=== PATIENT | male | born 1980 | race Caucasian/White ===

== ENCOUNTER 2019-01-09 08:27 | Outpatient (CLI) | payer BC | END 2019-01-09 08:28 | disposition home or self-care (01) | LOC: PAT 08:27 ==

== ENCOUNTER 2019-01-17 06:41 | Day surgery (SDC) | payer BC ==
[2019-01-09 10:22] VITALS: BMI 27.0
[2019-01-17] MEDS ORDERED: Bupivacaine 0.5% 50 ML IJ ONE (08:09)
[2019-01-17] MEDS ORDERED: Midazolam 2 MG/2 ML VIAL ONE (08:50)
[2019-01-17] MEDS ORDERED: Propofol 10 mg/ml Inj (20 ML) ONE (08:50)
[2019-01-17] MEDS ORDERED: ePHEDrine 50 mg/ml Inj ONE (09:53)
--- NOTE | 2019-01-17 10:10 | PCM.SURG1 ---
Surgeon's Initial Post Op Note - Surgeon's Notes Surgeon: Dr. Patiño Tack Puller: Dr. De León PGY2, Dr. Batista PGY1, Daniele OMS-3 Type of Anesthesia: General Endo, Local Anesthesia Administered By: Dr. Garces Pre-Operative Diagnosis: Left inguinal hernia Operative Findings: see operative dictation Post-Operative Diagnosis: same Operation Performed: open left inguinal hernia repair with mesh Specimen/Specimens Removed: none Estimated Blood Loss: EBL {In ML}: 2 Blood Products Given: N/A Drains Used: No Drains Post-Op Condition: Good Date of Surgery/Procedure: 01/17/19 Time of Surgery/Procedure: 10:10
[2019-01-17] MEDS ORDERED: Oxycodone/Acetaminophen 5/325 mg Tab PO PRN (10:11)
[2019-01-17] MEDS ORDERED: HYDROmorphone 0.5 mg/0.5 ml ISec IVP PRN (10:12)
[2019-01-17] MEDS ORDERED: Lactated Ringer's 1,000 ML IV SCH (10:15)
[2019-01-17 11:13] VITALS: BP 143/96; PULSE 76; RESP 18; TEMP 96.8; O2SAT 99
--- NOTE | 2019-01-18 07:28 | OP ---
PROCEDURE DATE: 01/17/2019 SURGEON: Dorian Patiño MD ASSISTANTS: Xin De León DO, PGY-2 and Jimenez Batista DO, PGY-1 ANESTHESIOLOGIST: Curt Garces DO ANESTHESIA: General endotracheal. PREOPERATIVE DIAGNOSIS: Symptomatic left inguinal hernia. POSTOPERATIVE DIAGNOSIS: Left inguinal hernia. FINDINGS: Left inguinal hernia. SPECIMENS: None. BLOOD LOSS: 5 mL. DRAINS: None. COMPLICATIONS: None. DESCRIPTION OF PROCEDURE: The patient is a 38-year-old male with past medical history significant for reducible right inguinal hernia with previous abdominal pain that has since resolved. The patient was seen and evaluated in the office, and it was determined that he would benefit from an elective left inguinal hernia repair. The patient was consented for the same. All risks and benefits were discussed with the patient prior to surgical intervention and all questions were answered. The patient was brought into the operating room and laid supine upon the operating table. General endotracheal anesthesia was administered. The patient was prepped and draped in the usual sterile fashion. A time-out was performed identifying the patient, procedure and laterality. A transverse incision was made between the pubic rami and the anterior superior iliac crest. Dissection was carried down to the external oblique fascia which was divided. The dissection was carried down to the external ring. The external ring was identified. The hernia was identified and circumferentially dissected. The spermatic cord and vessels were identified and protected with a Carly drain. The hernia was circumferentially dissected and found to be reducible with a cord lipoma and was replaced back into the intra-abdominal cavity. A mesh plug was then secured superior to the reduced hernia sac and contents, and overlay mesh was then placed and secured with Prolene sutures on the superior, inferior and lateral aspects. The external oblique fascia was then closed over the mesh. Deep dermal sutures were placed to approximate the skin incision. The skin was closed with a 4-0 Monocryl in a running subcuticular fashion. Local anesthesia was infiltrated along the wound. Surgical glue was then applied. All sutures, sponges and instrument counts were declared to be correct at the end of the procedure. A pressure dressing was applied. The testicles were verified for good position bilaterally. The patient was then extubated and taken to the postanesthesia care unit in stable condition. Xin De LeónDO Dorian Patiño MD [facility] # [id number]
== END 2019-01-17 14:34 | disposition home or self-care (01) ==
LOC: SDS 06:41
PROVIDERS: ATTEND Surgery
DX: K40.90 Unilateral inguinal hernia, without obstruction or gangrene, not specified as recurrent (principal); I10 Essential (primary) hypertension; J40 Bronchitis, not specified as acute or chronic; Z91.048 Other nonmedicinal substance allergy status
CPT/HCPCS: 49505; J0690; J1170; J1885; J2250; J2405; J2704; J3010; J7120